=== PATIENT | male | born 1965 | race Caucasian/White ===

== ENCOUNTER 2016-08-05 09:29 | Emergency (ER) | payer SELFPAY ==
[2016-08-05 09:40] VITALS: BMI 30.2
[2016-08-05] MEDS ORDERED: FENTANYL 100 MCG/2 ML VIAL IV ONE (10:22)
[2016-08-05] MEDS ORDERED: SODIUM CHLORIDE 0.9% 3 ML FLUSH FLUSH PRN (10:22)
[2016-08-05] MEDS ORDERED: ONDANSETRON HCL 4 MG/2 ML VIAL IV ONE (10:22)
--- NOTE | 2016-08-05 10:25 | EDPRACDOC ---
Addendum entered and electronically signed by Maryjo Pierre PA 08/05/16 13:09: CXR IMPRESSION: No active disease. 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 Location: Reports: LLQ (LEFT GROIN) Pain Context: Reports: Spontaneous (AFTER COUGHING SPELL THIS AM) Pain Severity: Moderate Pain Quality: Reports: Aching, Burning, Sharp Pain Radiation: Reports: No Radiation Adult Abdominal History: Reports: Similar Pain (dx) (LEFT GROIN HERNIA) Modifying Factors: improves with: Position, Movement Associated Signs & Symptoms: Reports: Nausea Oral Intake: Normal Urinary Output: Normal <Maryjo Pierre - Last Filed: 08/05/16 12:08> <Melly Olmstead - Last Filed: 08/05/16 13:22> - General Information Chief Complaint: Abdominal Pain Stated Complaint: HERNIA Time Seen by Provider: 08/05/16 09:53 Home Medications: Home Medications Ondansetron [Zofran Odt] 4 mg PO Q6H #20 tab.rapdis 08/05/16 Allergies/Adverse Reactions: Allergies Allergy/AdvReac Type Severity Reaction Status Date / Time No Known Allergies Allergy Verified 08/31/15 16:21 - History of Present Illness HPI: PT STATES HAS HAD LEFT GROIN HERNIA SEVERAL MONTHS BUT LAST NIGHT STARTED HURTING MORE AND THIS AM AFTER A COUGHING SPELL THE HERNIA BECAME BIGGER AND IS CAUSING MORE PAIN WITH NAUSEA HE STATES HE WAS ABLE TO REDUCE IT SOME THIS AM BUT IS STILL HURTING. HAS MILD NAUSEA WELL. (Maryjo Pierre) ED Past Medical History - History Reviewed Yes Nurses notes reviewed and agree except as marked Travel Outside of [place] in the Last 3 Months?: No - Patient Medical History GI/ History: Reports: Gastroesophageal Reflux, PMH GI Yes/No Other (LEFT GROIN HERNIA H/O HEP C) Psychological History: Reports: Depression, Substance Use Disorder (IV OPANA) Systemic History: Denies: Cancer Surgical History: Reports: Hernia Surgery (Right inguinal double hernia surgery) - Family Medical History Reports: Stroke, Cardiac Disorders - Social Medical History Smoking Status: Heavy tobacco smoker (5 or more cigarettes/day or daily pipe/ cigar) Social History: Reports: Substance Use Disorder (IV O[place]NA) ETOH: None Substance Abuse: Illicit Drugs Lives With: Other Lives In: Home <Maryjo Pierre - Last Filed: 08/05/16 12:08> EDM Review of Systems - Review of Systems ROS Negative Except as Marked: Yes All systems reviewed and were negative except as marked Constitutional: No Symptoms Reported. negative: Fever, Chills, Weakness, Fatigue, Loss of Appetite Eyes: No Symptoms Reported. negative: Redness, Blurred Vision, Double Vision, Discharge, Pain, Light Sensitive, Photophobia Ears: No Symptoms Reported. negative: Pain, Hearing Loss, Drainage, Ear Pulling Throat: No Symptoms Reported. negative: Pain, Swelling Nose: No Symptoms Reported. negative: Congestion, Bleeding, Discharge, Injection, Swelling, Deformity, Ecchymosis, Tender, Abrasion, Laceration Mouth: No Symptoms Reported. negative: Pain, Drooling Respiratory: No Symptoms Reported. negative: Cough, Brassy Cough, Barky Cough, Shortness of Breath, Wheezing, Hemoptysis Cardiovascular: No Symptoms Reported. negative: Chest Pain, Palpitations, Syncope, Edema, Orthopnea, PND, Skin Mottling, Cyanosis Gastrointestinal: Nausea, Pain (LEFT GROIN). negative: Constipation, Diarrhea, Formula Intolerance, Melena, Vomiting Genitourinary: No Symptoms Reported. negative: Dysuria, Hematuria, Frequency, Discharge, Bleeding, Testicular Pain, Neurological: No Symptoms Reported. negative: Headache, Dizziness, Seizure, Numbness, Weakness, Speech Difficulty, Gait Difficulty Musculoskeletal: No Symptoms Reported. negative: Neck, Chestwall, Ribs, Back, Shoulder, Arm, Elbow, Forearm, Wrist, Hand, Pelvis, Hip, Femur, Knee, Leg, Ankle , Foot Integumentary: No Symptoms Reported. negative: Itching, Rash, Bruising, Wound Allergic/Immunologic: No Symptoms Reported. negative: Hives, Itching Hematologic: No Symptoms Reported. negative: Lymphadenopathy, Easy Bruising, Easy Bleeding Endocrine: No Symptoms Reported. negative: Weight Gain, Weight Loss Psychiatric: No Symptoms Reported. negative: Anxiety, Depression, Hallucinations, Insomnia, Suicidal <Maryjo Pierre Tunde - Last Filed: 08/05/16 12:08> - Physical Exam Constitutional: Alert (Awake), No apparent distress Oriented to: Time, Person, Place - HEENT Head: Normal ( normocephalic) Eye Exam: Normal (PERRL, EOMI, Sclera white) Oropharynx: Normal (Pharynx:Moist without exudate,Gums-no swelling) Tympanic Membrane: Normal ENT EAC: Normal TMJ: Normal Nose: No Symptoms Reported (septum midline) Neck: Normal (FROM, trachea at midline) - Respiratory/Cardiovascular Respiratory: Normal - CTA (BBS clear to auscultation without adventitious sounds ) Cardiovascular: Normal (RRR without murmur, gallop or rub) - GI Auscultation: Normal (NABS) Palpation: Normal (Soft,No rebound or guarding, non distended) Tenderness: Moderate, Other (LEFT INGUINAL HERNIA APPEARS TO A DIRECT INGUINAL HERNIA) Keen's Sign: Negative - Bladder: Normal - Musculoskeletal Back: Normal (Non-Tender) Extremities: Normal (Normal tone, Pulses 2+ No cyanosis or edema, FROM) - Integumentary Skin: Normal, Warm, Dry Lymphatics: Normal (no adenopathy) - Neurologic Memory Impaired: Normal Motor Function: Normal (Normal tone, Pulses 2+ No cyanosis or edema, FROM) Cranial Nerve: Normal (CN II-X11 intact sensation, strength 5/5) Cerebellar: Normal Mood Description: Normal Perception: Normal <Maryjo Pierre - Last Filed: 08/05/16 12:08> - Differential Diagnosis Other (HERNIA, INCARCERATED OR STRANGULATED DIRECT HERNIA) - Results 08/05/16 10:24 08/05/16 10:24 <Maryjo Pierre - Last Filed: 08/05/16 12:08> - Re-evaluation Re-evaluation 1 Re-evaluation Time: 11:30 - Results 08/05/16 10:24 08/05/16 10:24 - Diagnostic Imaging Abdomen Image interpreted by: Radiologist <Melly Olmstead - Last Filed: 08/05/16 13:22> - Re-evaluation Re-evaluation 1 PATIENT ESSENTIALLY COMES EMERGENCY DEPARTMENT FOR RECURRENT PAIN ASSOCIATED WITH THIS HERNIA. HE ADMITS THAT HIS HERNIA IS EASILY REDUCIBLE. IT IS EXPLAINED TO THE PATIENT THAT LONG HIS HERNIA IS REDUCIBLE THEN IT IS NOT A SURGICAL EMERGENCY AND CAN BE HANDLED AN OUTPATIENT AND WILL NOT REQUIRE EMERGENCY DEPARTMENT VISITS FOR PAIN MEDICATIONS. AND WE WILL NOT PRESCRIBE PAIN MEDICATIONS TODAY FOR HIS HERNIA. BLOOD CULTURES AND LACTIC ACID WERE OBTAINED INITIALLY UPON REVIEW OF CT SCAN WITH A CONCERN OF ELEVATED WHITE COUNT AND HISTORY OF IV DRUG ABUSE START THE FINDING ON CT SCAN WAS ACTUALLY A RENAL ABSCESS. WILL FOLLOW CULTURES. BASED ON HIS REPORTED LEVEL OF PAIN SO SHE WAS HERNIA CT SCAN WAS UNDERTAKEN. WITH AN INCIDENTAL FINDING OF RENAL CELL CARCINOMA. THIS WAS EXPLAINED TO THE PATIENT WELL HIS SISTER. WE HAVE ALSO CONTACTED UROLOGY TO FACILITATE FOLLOW-UP. (Melly Olmstead) - Results WBC 19.8 xk/uL (3.8-10.8) H 08/05/16 10:24 RBC 5.04 xM/uL (4.70-6.10) 08/05/16 10:24 Hgb 13.5 g/dL (14.0-18.0) L 08/05/16 10:24 Hct 40.3 % (42-52) L 08/05/16 10:24 MCV 80 fL (80-94) 08/05/16 10:24 MCH 26.8 pg (27-32) L 08/05/16 10:24 MCHC 33.5 g/dl (33-36) 08/05/16 10:24 RDW 16.0 % (11.5-14.5) H 08/05/16 10:24 Plt Count 300 xk/uL (130-400) 08/05/16 10:24 MPV 7.5 fL (7.4-10.4) 08/05/16 10:24 Neut % (Auto) 72.6 % (45-76) 08/05/16 10:24 Lymph % (Auto) 21.0 % (17-44) 08/05/16 10:24 Benzie % (Auto) 5.5 % (3-10) 08/05/16 10:24 Eos % (Auto) 0.2 % (0-5) 08/05/16 10:24 Baso % (Auto) 0.7 % (0-2) 08/05/16 10:24 Absolute Neuts (auto) 14.26 xk/uL (1.7-8.2) H 08/05/16 10:24 Absolute Lymphs (auto) 4.16 xk/uL (0.65-4.75) 08/05/16 10:24 Sodium 140 mEq/L (137-146) 08/05/16 10:24 Potassium 3.7 mEq/L (3.5-5.1) 08/05/16 10:24 Chloride 106 mEq/L (98-107) 08/05/16 10:24 Carbon Dioxide 24 mMOL/L (22-33) 08/05/16 10:24 Anion Gap 14 mEq/L (8-16) 08/05/16 10:24 BUN 7 MG/DL (9-20) L 08/05/16 10:24 Creatinine 0.60 MG/DL (0.66-1.25) L 08/05/16 10:24 Estimated GFR (MDRD) > 60 mL/min (>=60) 08/05/16 10:24 Glucose 108 MG/DL (70-99) H 08/05/16 10:24 Calculated Osmolality 268 MOs/Kg (270-290) L 08/05/16 10:24 Lactic Acid 0.6 mEq/L (0.7-2.1) L 08/05/16 11:55 Calcium 9.0 MG/DL (8.4-10.2) 08/05/16 10:24 Corrected Calcium 9.4 MG/DL (8.4-10.2) 08/05/16 10:24 Total Bilirubin 0.6 MG/DL (0.2-1.3) 08/05/16 10:24 AST 33 IU/L (17-59) 08/05/16 10:24 ALT 35 IU/L (21-72) 08/05/16 10:24 Alkaline Phosphatase 75 IU/L (38-126) 08/05/16 10:24 Total Protein 6.9 G/DL (6.3-8.2) 08/05/16 10:24 Albumin 3.6 G/DL (3.5-5.0) 08/05/16 10:24 Urine Color Yellow 08/05/16 10:32 Urine Clarity Clear 08/05/16 10:32 Urine pH 7.0 (5.0-8.0) 08/05/16 10:32 Ur Specific [place] 1.010 (1.003-1.035) 08/05/16 10:32 Urine Protein Neg (NEG/TRACE) 08/05/16 10:32 Urine Glucose (UA) Neg (NEGATIVE) 08/05/16 10:32 Urine Ketones Neg (NEGATIVE) 08/05/16 10:32 Urine Occult Blood Neg (NEG/TRACE) 08/05/16 10:32 Urine Nitrite Neg (NEGATIVE) 08/05/16 10:32 Urine Bilirubin Neg (NEGATIVE) 08/05/16 10:32 Urine Urobilinogen 0.2 MG/DL (0-1) 08/05/16 10:32 Ur Leukocyte Esterase Neg (NEGATIVE) 08/05/16 10:32 Urine RBC 2-5 (0-2) H 08/05/16 10:32 Urine WBC 0-2 (0-2) 08/05/16 10:32 Urine Bacteria Few (NEG/FEW) 08/05/16 10:32 Urine Mucus Sm amt (NEG/OCC) 08/05/16 10:32 Urine Opiates Screen Neg (NEGATIVE) 08/05/16 10:32 Ur Oxycodone Screen *positive* (NEGATIVE) H 08/05/16 10:32 Urine Methadone Screen Neg (NEGATIVE) 08/05/16 10:32 Ur Barbiturates Screen Neg (NEGATIVE) 08/05/16 10:32 Ur Tricyclics Screen Neg (NEGATIVE) 08/05/16 10:32 Ur Phencyclidine Scrn Neg (NEGATIVE) 08/05/16 10:32 Ur Amphetamines Screen Neg (NEGATIVE) 08/05/16 10:32 U Methamphetamines Scrn Neg (NEGATIVE) 08/05/16 10:32 Urine MDMA Screen Neg (NEGATIVE) 08/05/16 10:32 U Benzodiazepines Scrn Neg (NEGATIVE) 08/05/16 10:32 Urine Cocaine Screen Neg (NEGATIVE) 08/05/16 10:32 Ur THC Screen Neg (NEGATIVE) 08/05/16 10:32 Lab Results 08/05/16 08/05/16 08/05/16 11:55 10:32 10:32 WBC RBC Hgb Hct MCV MCH MCHC RDW Plt Count MPV Neut % (Auto) Lymph % (Auto) Benzie % (Auto) Eos % (Auto) Baso % (Auto) Absolute Neuts (auto) Absolute Lymphs (auto) Sodium Potassium Chloride Carbon Dioxide Anion Gap BUN Creatinine Estimated GFR (MDRD) Glucose Calculated Osmolality Lactic Acid 0.6 L Calcium Corrected Calcium Total Bilirubin AST ALT Alkaline Phosphatase Total Protein Albumin Urine Color Yellow Urine Clarity Clear Urine pH 7.0 Ur Specific [place] 1.010 Urine Protein Neg Urine Glucose (UA) Neg Urine Ketones Neg Urine Occult Blood Neg Urine Nitrite Neg Urine Bilirubin Neg Urine Urobilinogen 0.2 Ur Leukocyte Esterase Neg Urine RBC 2-5 H Urine WBC 0-2 Urine Bacteria Few Urine Mucus Sm amt Urine Opiates Screen Neg Ur Oxycodone Screen *positive* H Urine Methadone Screen Neg Ur Barbiturates Screen Neg Ur Tricyclics Screen Neg Ur Phencyclidine Scrn Neg Ur Amphetamines Screen Neg U Methamphetamines Scrn Neg Urine MDMA Screen Neg U Benzodiazepines Scrn Neg Urine Cocaine Screen Neg Ur THC Screen Neg 08/05/16 08/05/16 10:24 10:24 WBC 19.8 H RBC 5.04 Hgb 13.5 L Hct 40.3 L MCV 80 MCH 26.8 L MCHC 33.5 RDW 16.0 H Plt Count 300 MPV 7.5 Neut % (Auto) 72.6 Lymph % (Auto) 21.0 Benzie % (Auto) 5.5 Eos % (Auto) 0.2 Baso % (Auto) 0.7 Absolute Neuts (auto) 14.26 H Absolute Lymphs (auto) 4.16 Sodium 140 Potassium 3.7 Chloride 106 Carbon Dioxide 24 Anion Gap 14 BUN 7 L Creatinine 0.60 L Estimated GFR (MDRD) > 60 Glucose 108 H Calculated Osmolality 268 L Lactic Acid Calcium 9.0 Corrected Calcium 9.4 Total Bilirubin 0.6 AST 33 ALT 35 Alkaline Phosphatase 75 Total Protein 6.9 Albumin 3.6 Urine Color Urine Clarity Urine pH Ur Specific [place] Urine Protein Urine Glucose (UA) Urine Ketones Urine Occult Blood Urine Nitrite Urine Bilirubin Urine Urobilinogen Ur Leukocyte Esterase Urine RBC Urine WBC Urine Bacteria Urine Mucus Urine Opiates Screen Ur Oxycodone Screen Urine Methadone Screen Ur Barbiturates Screen Ur Tricyclics Screen Ur Phencyclidine Scrn Ur Amphetamines Screen U Methamphetamines Scrn Urine MDMA Screen U Benzodiazepines Scrn Urine Cocaine Screen Ur THC Screen (Melly Olmstead) - Diagnostic Imaging Abdomen 08/05/16 13:21 Patient Name: ROSA GUILLAUME LOC: ED : 12/22/1957 AGE: 58 Order Date:08/05/16 Date of Service: Report # [id number] Ord Physician: Melly Olmstead MD Exam # [id number] Emergency Physician: Melly Olmstead MD Exam(s): [id number] US/US EXTREM LOW VENOUS - L CLINICAL DATA: 58-year-old male with 5 days of calf pain EXAM: LEFT LOWER EXTREMITY VENOUS DOPPLER ULTRASOUND TECHNIQUE: Zavala-scale sonography with graded compression, as well as color Doppler and duplex ultrasound were performed to evaluate the lower extremity deep venous systems from the level of the common femoral vein and including the common femoral, femoral, profunda femoral, popliteal and calf veins including the posterior tibial, peroneal and gastrocnemius veins when visible. The superficial great saphenous vein was also interrogated. Spectral Doppler was utilized to evaluate flow at rest and with distal augmentation maneuvers in the common femoral, femoral and popliteal veins. COMPARISON: None. FINDINGS: Contralateral Common Femoral Vein: Respiratory phasicity is normal and symmetric with the symptomatic side. No evidence of thrombus. Normal compressibility. Common Femoral Vein: No evidence of thrombus. Normal compressibility, respiratory phasicity and response to augmentation. Saphenofemoral Junction: No evidence of thrombus. Normal compressibility and flow on color Doppler imaging. Profunda Femoral Vein: No evidence of thrombus. Normal compressibility and flow on color Doppler imaging. Femoral Vein: No evidence of thrombus. Normal compressibility, respiratory phasicity and response to augmentation. Popliteal Vein: Proximal popliteal vein is compressible and patent. However, echogenic material fills the lumen of the distal popliteal vein. This segment of the vessel is nonocclusive and there is no evidence of flow on color Doppler imaging. Findings consistent with occlusive thrombus in the distal popliteal vein. Calf Veins: Nonocclusive thrombus extends into the posterior tibial veins. The peroneal veins are patent. Superficial Great Saphenous Vein: No evidence of thrombus. Normal compressibility and flow on color Doppler imaging. Venous Reflux: None. Other Findings: None. IMPRESSION: Positive for deep venous thrombosis. There is focally occlusive thrombus in the distal popliteal artery with extension of nonocclusive thrombus into the posterior tibial veins in the proximal calf. Electronically Signed By: Demond Birminghma M.D. On: 08/05/2016 11:09 Electronically Signed By: Demond Birmingham MD Electronically Signed Date/Time: 111 Dictate Date/Time: 08/05/16 1105 Technologist: Mateusz Polanco Transcribed By: Pako Transcribed Date/Time: 08/05/16 1109 (Melly Olmstead) - Departure Education/Counseling Given To: Patient, Family Member Education/Counseling Given Regarding: Diagnosis, Treatment, Prognosis, Follow Up - Physician Consulted Urology Time Called: 12:08 Provider Called: Jose Knight (WILL FOLLOW UP WITH PT IN OFFICE) <Maryjo Pierre - Last Filed: 08/05/16 12:08> - Departure Disposition: Home <Melly Olmstead - Last Filed: 08/05/16 13:22> - Departure Final Diagnosis: Left inguinal hernia, Left renal mass, Nephrolithiasis Instructions: Kidney Stones (ED), Inguinal Hernia (ED) Referrals: Jose Knight MD [Staff Physician] - One Week Iván Brooks MD [Staff Physician] - One Week Prescriptions: Ondansetron [Zofran Odt] 4 mg PO Q6H #20 tab.rapdis Additional Instructions: CALL DR. KNIGHT'S OFFICE UPON DISCHARGE TO SET UP APPOINTMENT FOR FOLLOW UP REGARDING LEFT KIDNEY MASS. YOUR HERNIA DOES NOT NEED EMERGENT SURGERY AT THIS TIME. RETURN FOR WORSE OR DIFFERENT SYMPTOMS.
[2016-08-05 10:38] LABS: AUTOMATED BASOPHIL 0.7 % (0-2); AUTOMATED EOSINOPHIL 0.2 % (0-5); AUTOMATED MONOCYTE 5.5 % (3-10); AUTOMATED NEUTROPHIL 72.6 % (45-76); MPV 7.5 fL (7.4-10.4)
[2016-08-05 10:49] LABS: BLOOD UREA NITROGEN 7 MG/DL (9-20); CALC CORRECTED 9.4 MG/DL (8.4-10.2); CALCULATED OSMOLALITY 268 MOs/Kg (270-290); CHLORIDE 106 mEq/L (98-107); GLUCOSE 108 MG/DL (70-99); SODIUM LEVEL 140 mEq/L (137-146); TOTAL PROTEIN 6.9 G/DL (6.3-8.2)
[2016-08-05] MEDS ORDERED: HYDROmorphone 1 MG INJECTION IV ONE ×2 (10:54)
[2016-08-05] MEDS ORDERED: DIAZEPAM 10 MG/2 ML TUBEX IV ONE (10:54)
[2016-08-05 10:56] LABS: WBC/URINE 0-2 (0-2)
[2016-08-05] MEDS ORDERED: Pharmacy Review for Metformin - IV Contrast Given SCH (11:00)
[2016-08-05 11:01] LABS: LEUKOCYTES/URINE NEG (NEGATIVE); NITRITE/URINE NEG (NEGATIVE); URINE OCCULT BLOOD NEG (NEG/TRACE)
[2016-08-05 11:02] LABS: ALL NEG? NO
[2016-08-05 11:23] LABS: MDMA* NEG (NEGATIVE); METHAMPHETAMINES NEG (NEGATIVE); OXYCODONE *POSITIVE* (NEGATIVE)
--- NOTE | 2016-08-05 11:50 | DIRPT ---
CLINICAL DATA: Left inguinal hernia with pain and nausea. EXAM: CT ABDOMEN AND PELVIS WITH CONTRAST TECHNIQUE: Multidetector CT imaging of the abdomen and pelvis was performed using the standard protocol following bolus administration of intravenous contrast. CONTRAST: 100 mL of Isovue 370 intravenously. COMPARISON: None available currently. FINDINGS: Visualized lung bases are unremarkable. No significant osseous abnormality is noted. No gallstones are noted. Left hepatic cyst is noted. The spleen and pancreas appear normal. Adrenal glands and right kidney appear normal. No hydronephrosis or renal obstruction is noted. Small nonobstructive calculus is noted in midpole of left kidney. Heterogeneously enhancing mass measuring 8.6 x 7.0 x 6.0 cm is noted in the upper pole left kidney consistent with renal cell carcinoma. The appendix appears normal. There is no evidence of bowel obstruction. No abnormal fluid collection is noted. Urinary bladder is decompressed. Large left inguinal hernia is noted which contains a loop of sigmoid colon, but does not result in obstruction. There is no evidence of abdominal aortic aneurysm. No significant adenopathy is noted. IMPRESSION: Nonobstructive left renal calculus. No hydronephrosis or renal obstruction is noted. Large left inguinal hernia is noted which contains a loop of sigmoid colon, but does not result in obstruction. 8.6 x 7.0 x 6.0 cm heterogeneously enhancing mass is seen arising from upper pole of left kidney consistent with renal cell carcinoma. Urologic consultation is recommended. Electronically Signed By: Servando Rousseau Jr, M.D. On: 08/05/2016 11:47
[2016-08-05 12:01] VITALS: TEMP 98.3
--- NOTE | 2016-08-05 13:08 | DIRPT ---
CLINICAL DATA: Left groin hernia. This has become more painful this morning after a coughing spell. Some nausea with the discomfort. EXAM: PORTABLE CHEST 1 VIEW COMPARISON: 10/27/2014 FINDINGS: Cardiac silhouette normal in size and configuration. No mediastinal or hilar masses or evidence of adenopathy. Clear lungs. No pleural effusion or pneumothorax. Bony thorax is intact. IMPRESSION: No active disease. Electronically Signed By: Manuel Conklin M.D. On: 08/05/2016 13:06
[2016-08-05 13:37] VITALS: BP 132/83; PULSE 87
[2016-08-05] MEDS ORDERED: SODIUM CHLORIDE 0.9% 3 ML FLUSH FLUSH SCH (18:00)
== END 2016-08-05 13:40 | disposition home or self-care (01) ==
LOC: ED 09:29
DX: K40.90 Unilateral inguinal hernia, without obstruction or gangrene, not specified as recurrent (principal); N28.89 Other specified disorders of kidney and ureter; N20.0 Calculus of kidney
CPT/HCPCS: 36415; 71010; 74177; 80053; 80307; 81001; 83605; 85025; 87040; 96374; 96375; 99284; A9698; J1170; J2405; J3010; J3360